=== PATIENT | female | born 1960 | race Caucasian/White ===

== ENCOUNTER 2025-04-04 16:44 | Outpatient (CLI) | payer BC, SELFPAY ==
--- NOTE | 2025-04-04 | MR_ITS ---
PROCEDURE INFORMATION: Exam: MR Lumbar Spine Without Contrast Exam date and time: 04/04/2025 4:53 PM Age: 64 years old Clinical indication: Low back pain; Additional info: Left leg tingling TECHNIQUE: Imaging protocol: Magnetic resonance imaging of the lumbar spine without contrast. COMPARISON: No relevant prior studies available. FINDINGS: Bones/joints: Visible bone marrow is within normal limits. Alignment is normal. Spinal cord: Conus medullaris is at the level of the L1 vertebral body. The visible spinal cord is unremarkable. L1-L2: No disc bulge, spinal canal stenosis or neural foraminal narrowing. L2-L3: No disc bulge, spinal canal stenosis or neural foraminal narrowing. L3-L4: Mild bilateral facet hypertrophy with mild ligamentum flavum thickening. Mild spinal canal stenosis. Mild bilateral neural foraminal narrowing. No spinal canal stenosis. No disc bulge. L4-L5: Bilateral facet hypertrophy with ligamentum flavum thickening. Mild spinal canal stenosis. No disc bulge. Mild bilateral neural foraminal narrowing. L5-S1: No disc bulge, spinal canal stenosis or neural foraminal narrowing. Soft tissues: The remaining soft tissue is unremarkable. IMPRESSION: Mild degenerative changes with no critical spinal canal stenosis or neural foraminal narrowing.
== END 2025-04-04 23:59 | disposition home or self-care (01) ==
LOC: RAD 16:44
PROVIDERS: PCP Obstetrics & Gynecology; Visit Provider Nurse Practitioner Family
DX: M47.816 Spondylosis without myelopathy or radiculopathy, lumbar region (principal); M79.605 Pain in left leg; R20.0 Anesthesia of skin
CPT/HCPCS: 72148